=== PATIENT | female | born 1955 | race Caucasian/White ===

== ENCOUNTER 2019-06-23 08:21 | Observation (INO) | payer MEDICARE, BC ==
[2019-06-23] MEDS ORDERED: PROMETHAZINE HCL 6.25 MG in 0.9 % SODIUM CHLORIDE 100ML 100 ML IVPB ONE (08:51)
[2019-06-23 08:59] LABS: ABSOLUTE NEUTROPHIL COUNT 4.94; BASO % 0.3 % (0-6); EOS % 0.5 % (0-6); GRAN % 66.4 % (47-80); HEMATOCRIT 41.4 % (35.0-47.0); HEMOGLOBIN 13.5 gm/dl (11.6-16.0); LYMPH % 21.5 % (16-45); MEAN CORPUSCULAR HEMOGLOBIN 32.6 pg (27-33); MEAN CORPUSCULAR HGB CONC 32.6 g/dl (32-36); MEAN PLATELET VOLUME 8.8 fl (7.4-10.4); MONO % 11.3 % (0-9); PLATELET COUNT 286 K/uL (130-400); RED BLOOD COUNT 4.14 M/uL (3.80-5.40); RED CELL DISTRIBUTION WIDTH 13.3 % (11.5-14.5); WHITE BLOOD COUNT W/O DIFF 7.4 K/uL (4.2-12.2)
[2019-06-23 09:08] LABS: BLOOD UREA NITROGEN 13 mg/dL (8-23); CREATININE 0.8 mg/dL (0.5-0.9); EST GLOMERULAR FILTRATION RATE > 60 mL/min
[2019-06-23 09:09] LABS: TOTAL PROTEIN 7.7 g/dL (6.6-8.7)
[2019-06-23 09:11] LABS: GLUCOSE,RANDOM 110 mg/dL (74-109)
--- NOTE | 2019-06-23 09:12 | Emergency Department Record ---
History of Present Illness - General Chief Complaint: Dizziness Stated Complaint: DIZZINESS Time Seen by Provider: 06/23/19 08:37 Source: Patient, EMS Mode of Arrival: EMS Limitations: No limitations - History of Present Illness Initial Comments: pt woke up in the night with the room spinning. she thinks that she passed out because she found herself on the floor and has a sore spot on her head. her vertigo is improving. MD Complaint: Dizziness -: Unknown Timing: Gradual onset Description: "Room spinning" History of Same: No History of Trauma: No Improves With: Nothing Worsens With: Nothing Associated Symptoms: Denies other symptoms - [place] Coma Scale Eye Response: (4) Open spontaneously Motor Response: (6) Obeys commands Verbal Response: (5) Oriented Leilani Total: 15 - Symptoms of Stroke Symptoms of stroke: Vertigo - Related Data Home Medications Medication Instructions Recorded Confirmed Last Taken Acetaminophen [Tylenol Extra 500 mg PO ASDIR PRN 06/23/19 06/23/19 Unknown Strength] Baricitinib [Olumiant] 2 mg PO DAILY 06/23/19 06/23/19 Unknown Buspirone HCl [Buspar] 7.5 mg PO BID 06/23/19 06/23/19 Unknown Cyclobenzaprine HCl [Flexeril] 5 mg PO QHS 06/23/19 06/23/19 Unknown Diclofenac Sodium [Voltaren] 100 gm TP ASDIR PRN 06/23/19 06/23/19 Unknown Diphenhydramine HCl [Benadryl] 50 mg PO QHS 06/23/19 06/23/19 Unknown Folic Acid 1 mg PO BID 06/23/19 06/23/19 Unknown Levothyroxine Sodium 150 mcg PO DAILY 06/23/19 06/23/19 Unknown Lidocaine [Lidoderm] 1 each TP DAILY PRN 06/23/19 06/23/19 Unknown Losartan/Hydrochlorothiazide 1 each PO DAILY 06/23/19 06/23/19 Unknown [Losartan-Hctz 100-25 mg Tab] Methotrexate Sodium [Trexall] 12.5 mg PO WEEKLY 06/23/19 06/23/19 Unknown Montelukast Sodium 10 mg PO DAILY 06/23/19 06/23/19 Unknown Omeprazole [Prilosec] 20 mg PO BID 06/23/19 06/23/19 Unknown Allergies Allergy/AdvReac Type Severity Reaction Status Date / Time NSAIDS (Non-Steroidal Allergy Intermediate bleeding Verified 01/30/15 14:04 Anti-Inflamma ulcers Sulfa (Sulfonamide Allergy Intermediate HIVES Verified 01/30/15 14:04 Antibiotics) codeine Allergy Mild HEADACHE Verified 01/30/15 14:04 Penicillins Allergy Unknown unknown Verified 01/30/15 14:04 Travel Screening - Travel/Exposure Within Last 30 Days Have you traveled within the last 30 days?: No Review of Systems Reviewed: No additional complaints except as noted below Constitutional: Reports: As per HPI. Denies: Chills, Fever, Malaise, Night sweats, Weakness, Weight change Eyes: Reports: As per HPI. Denies: Eye discharge, Eye pain, Photophobia, Vision change ENT: Reports: As per HPI. Denies: Congestion, Dental pain, Ear pain, Epistaxis, Hearing loss, Throat pain Respiratory: Reports: As per HPI. Denies: Cough, Dyspnea, Hemoptysis, Stridor, Wheezes Cardiovascular: Reports: As per HPI. Denies: Arrhythmia, Chest pain, Dyspnea on exertion, Edema, Murmurs, Orthopnea, Palpitations, Paroxysmal nocturnal dyspne a, Rheumatic Fever, Syncope Endocrine: Reports: As per HPI. Denies: Fatigue, Heat or cold intolerance, Polydipsia, Polyuria Gastrointestinal: Reports: As per HPI. Denies: Abdominal pain, Constipation, Diarrhea, Hematemesis, Hematochezia, Melena, Nausea, Vomiting Genitourinary: Reports: As per HPI. Denies: Abnormal menses, Discharge, Dyspareunia, Dysuria, Frequency, Hematuria, Incontinence, Retention, Urgency Musculoskeletal: Reports: As per HPI. Denies: Arthralgia, Back pain, Gout, Joint swelling, Myalgia, Neck pain Skin: Reports: As per HPI. Denies: Bruising, Change in color, Change in hair/nails, Lesions, Pruritus, Rash Neurological: Reports: As per HPI, Vertigo. Denies: Abnormal gait, Confusion, Headache, Numbness, Paresthesias, Seizure, Tingling, Tremors, Weakness Psychiatric: Reports: As per HPI. Denies: Anxiety, Auditory hallucinations, Depression, Homicidal thoughts, Suicidal thoughts, Visual hallucinations Hematological/Lymphatic: Reports: As per HPI. Denies: Anemia, Blood Clots, Easy bleeding, Easy bruising, Swollen glands Past Medical History - SOCIAL HISTORY Smoking Status: Former smoker - RESPIRATORY Hx Respiratory Disorders: No - CARDIOVASCULAR Hx Cardio Disorders: Yes Hx Hypertension: Yes Comment:: high cholesterol - NEURO Hx Neuro Disorders: No - GI Hx GI Disorders: Yes Hx Reflux: Yes Hx Ulcer: Yes - Hx Genitourinary Disorders: No - ENDOCRINE Hx Endocrine Disorders: Yes Hx Thyroid Disease: Yes (hypo) - MUSCULOSKELETAL Hx Musculoskeletal Disorders: Yes Hx Arthritis: Yes (RA) - PSYCH Hx Psych Problems: No - HEMATOLOGY/ONCOLOGY Hx Hematology/Oncology Disorders: No Family Medical History Any Significant Family History?: No Physical Exam - General General Appearance: Alert, Oriented x3, Cooperative, Mild distress - Head Head exam: Normal inspection - Eye Eye exam: Normal appearance, PERRL, EOMI Pupils: Normal accommodation - ENT ENT exam: Normal exam, Mucous membranes moist, Normal external ear exam, Normal orophraynx, TM's normal bilaterally Ear exam: Normal external inspection. negative: External canal tenderness Nasal Exam: Normal inspection. negative: Discharge, Sinus tenderness Mouth exam: Normal external inspection, Tongue normal Teeth exam: Normal inspection. negative: Dental caries Throat exam: Normal inspection. negative: Tonsillar erythema, Tonsillar exudate - Neck Neck exam: Normal inspection, Full ROM. negative: Tenderness - Respiratory Respiratory exam: Normal lung sounds bilaterally. negative: Respiratory distress - Cardiovascular Cardiovascular Exam: Regular rate, Normal rhythm, Normal heart sounds - GI/Abdominal GI/Abdominal exam: Soft, Normal bowel sounds. negative: Tenderness - Rectal Rectal exam: Deferred - exam: Deferred - Extremities Extremities exam: Normal inspection, Full ROM, Normal capillary refill. negative: Tenderness - Back Back exam: Reports: Normal inspection, Full ROM. Denies: Muscle spasm, Rash noted, Tenderness - Neurological Neurological exam: Alert, CN II-XII intact, Normal gait, Oriented X3 - Psychiatric Psychiatric exam: Normal affect, Normal mood - Skin Skin exam: Dry, Intact, Normal color, Warm Course Vital Signs 06/23/19 08:25 Temperature 97.8 F Pulse Rate 64 Respiratory 16 Rate Blood Pressure 125/70 Pulse Ox 99 - Reevaluation(s) Reevaluation #1: 06/23/19 10:18 pts vertigo has improved Reevaluation #2: 06/23/19 10:40 pt has a headache Medical Decision Making - Lab Data Result diagrams: 06/23/19 08:34 06/23/19 08:34 Lab Results 06/23/19 Range/Units 08:34 WBC 7.4 (4.2-12.2) K/uL RBC 4.14 (3.80-5.40) M/uL Hgb 13.5 (11.6-16.0) gm/dl Hct 41.4 (35.0-47.0) % MCV 100.0 H (81-97) fl MCH 32.6 (27-33) pg MCHC 32.6 (32-36) g/dl RDW 13.3 (11.5-14.5) % Plt Count 286 (130-400) K/uL MPV 8.8 (7.4-10.4) fl Gran % 66.4 (47-80) % Lymphocytes % 21.5 (16-45) % Monocytes % 11.3 H (0-9) % Eosinophils % 0.5 (0-6) % Basophils % 0.3 (0-6) % Absolute Neutrophils 4.94 Disposition Disposition: Admit Clinical Impression: Syncope Qualifiers: Syncope type: unspecified Qualified Code(s): R55 - Syncope and collapse Disposition: Still a Patient at [facility] Decision to Admit: Admit from ER Decision to Admit Date: 06/23/19 Decision to Admit Time: 10:41 Forms: Patient Portal Access Quality - Quality Measures Quality Measures: N/A - Blood Pressure Screening Does Patient Have Any of the Following: Active Dx of HTN Blood Pressure Classification: Pre-Hypertensive BP Reading Systolic Measurement: 125 Diastolic Measurement: 70 Screening for High Blood Pressure: Patient Exclusion, Hx of HTN [[id number]]
[2019-06-23 09:13] LABS: ALB/GLOB RATIO 1.3 (1.1-1.8); ALBUMIN 4.4 g/dL (4.0-5.0); ALT/SGPT 22 U/L (<33); AST/SGOT 18 U/L (10.0-35.0)
[2019-06-23 09:14] LABS: ALKALINE PHOSPHATASE 89 U/L (35-104)
--- NOTE | 2019-06-23 09:46 | CT SCAN REPORT ---
EXAMINATION: CT Head without IV Contrast EXAM DATE: 06/23/2019 9:23 AM TECHNIQUE: Standard protocol CT images of the head were obtained without intravenous contrast. Payan l and sagittal reconstructed images were created. INDICATION: Syncope COMPARISON: No relevant comparison studies HAND DOMINANCE: Unknown. ENCOUNTER: Not applicable FINDINGS: 1. No intracranial mass effect, shift of midline structures, intra-axial or extra-axial hemorrhage, o r other extra-axial fluid collections. 2. Brain volume and ventricular size are appropriate for patient's stated age. No ventricular outflow obstruction. 3. Theodore-white matter differentiation is preserved. No sulcal effacement. No suspicious areas of alter ed attenuation. 4. Midline structures and craniocervical junction are unremarkable. 5. No significant intracranial atherosclerotic calcifications. 6. No depressed or widely calvarial fractures. No aggressive calvarial lesions. 7. Visualized paranasal sinuses and temporal bone structures are well aerated. Bilateral lens replace ment. IMPRESSION: No acute intracranial abnormality to the limits of noncontrast CT technique. Dictated by: Liset Mcintosh MD on 06/23/2019 9:43 AM. .
--- NOTE | 2019-06-23 10:05 | CT SCAN REPORT ---
EXAMINATION: CT Cervical Spine without IV Contrast EXAM DATE: 06/23/2019 9:23 AM TECHNIQUE: Standard protocol cervical spine CT imaging was performed without intravenous contrast. Co ro and sagittal images were reconstructed. INDICATION: Vertigo, fall. COMPARISON: No relevant comparison studies ENCOUNTER: Not applicable FINDINGS: The spine is seen from craniocervical junction to the T1-T2 level. No malalignment at the craniocervi brit junction. Straightening of the cervical lordosis. Cervical vertebral body heights and facet align ment are preserved. No convincing cervical spine fracture or traumatic malalignment. Moderate disc degenerative changes at C5-C6 and to a lesser extent C4-C5 without significant spinal c anal stenosis but moderate bilateral foraminal narrowing. Visualized lung apices are well aerated. IMPRESSION: Straightening of the cervical lordosis which may relate to patient positioning in the scanner versus muscle spasm. No cervical spine fracture. Dictated by: Liset Mcintosh MD on 06/23/2019 10:02 AM. .
[2019-06-23] MEDS ORDERED: ONDANSETRON HCL IV 4 MG/2 ML VIAL IVP ONE (10:19)
[2019-06-23] MEDS ORDERED: HYDROMORPHONE HCL 2 MG/ML VIAL IVP ONE (10:19)
[2019-06-23] MEDS ORDERED: HYDROMORPHONE HCL 2 MG/ML VIAL IVP PRN (11:10)
[2019-06-23] MEDS ORDERED: DICLOFENAC SODIUM 100 GM TP PRN (11:10)
[2019-06-23] MEDS ORDERED: MECLIZINE 25 MG TABLET PO PRN (11:10)
[2019-06-23 12:59] LABS: URINE APPEARANCE CLEAR; URINE BILIRUBIN NEGATIVE (NEGATIVE); URINE BLOOD NEGATIVE (NEGATIVE); URINE COLOR YELLOW; URINE GLUCOSE (UA) NEGATIVE (NEGATIVE); URINE KETONE NEGATIVE (NEGATIVE); URINE LEUKOCYTE ESTERASE NEGATIVE (NEGATIVE); URINE NITRITE NEGATIVE (NEGATIVE); URINE PROTEIN NEGATIVE (NEGATIVE); URINE UROBILINOGEN 0.2 E.U./dL (0.20 - 1.00)
[2019-06-23] MEDS: BUSPIRONE 5 MG TABLET PO SCH ×2 (14:25→21:33)
[2019-06-23] MEDS: ACETAMINOPHEN 500 MG TABLET PO PRN (14:28)
--- NOTE | 2019-06-23 14:32 | History & Physical ---
History of Present Illness - Date of Service Date of Service for History & Physical: 06/23/19 - History of Present Illness Admitting Diagnosis: syncope, vertigo History of Present Illness: 63 y/o female brought to ED via EMS for vertigo and syncope. Episode was unwitnessed. She reports has had a head cold for the past 3 days and has been taking Nyquil at night for congestion. She got up at 4am this am, took Nyquil, began to feel dizzy while she was standing in the kitchen and next thing she remembers is laying on the floor. She is unaware of how long the LOC lasted. After coming to she had a headache and felt very foggy so went back to bed. Upon arising a couple hours later she continued to be dizzy, at that time here called EMS. No further reported syncopal episodes. She admits to having had vertigo about 10 years ago, unknown cause, that spontaneously resolved and has had no further problems. Past medical history includes former smoker, HTN, high cholesterol, GERD, hypothyroidism, RA. While in ED VSS, CBC and CMP unremarkable. U/A negative. Head and cervical spine CT negative for fracture or acute process. Admitted for observation 06/23/19- Resting in bed comfortably, does report the top of her head hurts where she thinks she it on something when she passed out, otherwise has no other complaints. She states today her sinus congestion is feeling much better. Travel Screening - Travel/Exposure Within Last 30 Days Have you traveled within the last 30 days?: No - Travel/Exposure Within Last Year Have you traveled outside the [place] in the last year?: No - Additonal Travel Details Have you been exposed to anyone with a communicable illness?: No - Travel Symptoms Symptom Screening: None Review of Systems Constitutional: Reports: As per HPI. Denies: Chills, Fever, Malaise, Night swea ts, Weakness, Weight change Eyes: Reports: As per HPI. Denies: Eye discharge, Eye pain, Photophobia, Vision change ENT: Reports: As per HPI. Denies: Congestion, Dental pain, Ear pain, Epistaxis, Hearing loss, Throat pain Respiratory: Reports: As per HPI. Denies: Cough, Dyspnea, Hemoptysis, Stridor, Wheezes Cardiovascular: Reports: As per HPI. Denies: Arrhythmia, Chest pain, Dyspnea on exertion, Edema, Murmurs, Orthopnea, Palpitations, Paroxysmal nocturnal dyspnea, Rheumatic Fever, Syncope Endocrine: Reports: As per HPI. Denies: Fatigue, Heat or cold intolerance, P olydipsia, Polyuria Gastrointestinal: Reports: As per HPI. Denies: Abdominal pain, Constipation, Diarrhea, Hematemesis, Hematochezia, Melena, Nausea, Vomiting Genitourinary: Reports: As per HPI. Denies: Abnormal menses, Discharge, Dyspareunia, Dysuria, Frequency, Hematuria, Incontinence, Retention, Urgency Musculoskeletal: Reports: As per HPI. Denies: Arthralgia, Back pain, Gout, Joint swelling, Myalgia, Neck pain Skin: Reports: As per HPI. Denies: Bruising, Change in color, Change in hair/n ails, Lesions, Pruritus, Rash Neurological: Reports: As per HPI, Vertigo. Denies: Abnormal gait, Confusion, Headache, Numbness, Paresthesias, Seizure, Tingling, Tremors, Weakness Psychiatric: Reports: As per HPI. Denies: Anxiety, Auditory hallucinations, Depression, Homicidal thoughts, Suicidal thoughts, Visual hallucinations Hematological/Lymphatic: Reports: As per HPI. Denies: Anemia, Blood Clots, Easy bleeding, Easy bruising, Swollen glands Past Medical History - SOCIAL HISTORY Smoking Status: Former smoker Alcohol Use: Rare Drug Use: None - RESPIRATORY Hx Respiratory Disorders: Yes Hx Bronchitis: Yes (takes singulair) Hx Pneumonia: Yes (as a child) - CARDIOVASCULAR Hx Cardio Disorders: Yes Hx Hypertension: Yes (med controlled) Comment:: high cholesterol - NEURO Hx Neuro Disorders: Yes Hx Dizziness: Yes (current and 10 years ago) Hx Headaches: Yes - GI Hx GI Disorders: Yes Hx Reflux: Yes Hx Ulcer: Yes (hx bleeding ulcer) Hx Wt Loss/Wt Gain: Yes (hx gastric sleeve) - Hx Genitourinary Disorders: No - ENDOCRINE Hx Endocrine Disorders: Yes Hx Diabetes: No Hx Thyroid Disease: Yes (hypo) - MUSCULOSKELETAL Hx Musculoskeletal Disorders: Yes Hx Arthritis: Yes (RA) - PSYCH Hx Psych Problems: Yes Hx Anxiety: Yes - HEMATOLOGY/ONCOLOGY Hx Hematology/Oncology Disorders: No Hx Blood Transfusions: Yes Family Medical History Any Significant Family History?: No H&P Meds/Allergies - Allergies Allergies: Allergies Allergy/AdvReac Type Severity Reaction Status Date / Time NSAIDS (Non-Steroidal Allergy Intermediate bleeding Verified 01/30/15 14:04 Anti-Inflamma ulcers Sulfa (Sulfonamide Allergy Intermediate HIVES Verified 01/30/15 14:04 Antibiotics) codeine Allergy Mild HEADACHE Verified 01/30/15 14:04 Penicillins Allergy Unknown unknown Verified 01/30/15 14:04 - Home Medications Home Medications Medication Instructions Recorded Confirmed Last Taken Acetaminophen [Tylenol Extra 500 mg PO ASDIR PRN 06/23/19 06/23/19 Unknown Strength] Baricitinib [Olumiant] 2 mg PO DAILY 06/23/19 06/23/19 Unknown Buspirone HCl [Buspar] 7.5 mg PO BID 06/23/19 06/23/19 Unknown Cyclobenzaprine HCl [Flexeril] 5 mg PO QHS 06/23/19 06/23/19 Unknown Diclofenac Sodium [Voltaren] 100 gm TP ASDIR PRN 06/23/19 06/23/19 Unknown Diphenhydramine HCl [Benadryl] 50 mg PO QHS 06/23/19 06/23/19 Unknown Folic Acid 1 mg PO BID 06/23/19 06/23/19 Unknown Levothyroxine Sodium 150 mcg PO DAILY 06/23/19 06/23/19 Unknown Lidocaine [Lidoderm] 1 each TP DAILY PRN 06/23/19 06/23/19 Unknown Losartan/Hydrochlorothiazide 1 each PO DAILY 06/23/19 06/23/19 Unknown [Losartan-Hctz 100-25 mg Tab] Methotrexate Sodium [Trexall] 12.5 mg PO WEEKLY 06/23/19 06/23/19 Unknown Montelukast Sodium 10 mg PO DAILY 06/23/19 06/23/19 Unknown Omeprazole [Prilosec] 20 mg PO BID 06/23/19 06/23/19 Unknown - Active Medications Active Medications: Current Medications Acetaminophen (Tylenol 500mg Tab) 1,000 mg PO Q6H PRN PRN Reason: PAIN - MILD(1-4)/FEVER Buspirone HCl (Buspar) 7.5 mg PO BID NERY Diphenhydramine HCl (Benadryl Capsule) 50 mg PO QHS NERY Hydrochlorothiazide (Hctz 25mg) 25 mg PO DAILY NERY Hydromorphone HCl (Dilaudid) 0.5 mg IVP Q4H PRN PRN Reason: PAIN - MILD TO MODERATE (1-7) Levothyroxine Sodium (Synthroid) 150 mcg PO DAILY [facility] Losartan Potassium (Losartan Potassium) 100 mg PO DAILY NERY Meclizine HCl (Antivert) 25 mg PO Q8H PRN PRN Reason: DIZZINESS Montelukast Sodium (Singulair) 10 mg PO DAILY [facility] Non-Formulary Medication (Baricitinib [Olumiant]) 2 mg PO DAILY NERY Non-Formulary Medication (Diclofenac Sodium [Voltaren]) 100 gm TP ASDIR PRN PRN Reason: PAIN - MILD TO MODERATE (1-7) Non-Formulary Medication (Methotrexate Sodium [Trexall]) 12.5 mg PO WEEKLY NERY Pantoprazole Sodium (Protonix) 40 mg PO BID [facility] Physical Exam - Vital Signs Vital Signs: Vital Signs - Last 24 Hrs Temp Pulse Pulse Resp BP BP BP 06/23/19 12:00 99.5 F 62 14 105/61 06/23/19 10:46 64 18 109/59 06/23/19 08:25 97.8 F 64 16 125/70 Pulse Ox 06/23/19 12:00 94 L 06/23/19 10:46 98 06/23/19 08:25 99 - General General Appearance: Alert, Oriented x3, Cooperative Limitations: No limitations - Head Head exam: Atraumatic, Normocephalic, Normal inspection (she complains of tenderness to frontal region of skull, no abnormality noted) - Eye Eye exam: Normal appearance, PERRL, EOMI Pupils: Normal accommodation - ENT ENT exam: Normal exam, Mucous membranes moist, Normal external ear exam, Normal orophraynx, TM's normal bilaterally Ear exam: Normal external inspection. negative: External canal tenderness Nasal Exam: Normal inspection. negative: Discharge, Sinus tenderness Mouth exam: Normal external inspection, Tongue normal Teeth exam: Normal inspection. negative: Dental caries Throat exam: Normal inspection. negative: Tonsillar erythema, Tonsillar exudate - Neck Neck exam: Normal inspection, Full ROM. negative: Tenderness - Respiratory Respiratory exam: Normal lung sounds bilaterally. negative: Respiratory distress - Cardiovascular Cardiovascular Exam: Regular rate, Normal rhythm, Normal heart sounds - GI/Abdominal GI/Abdominal exam: Soft, Normal bowel sounds. negative: Tenderness - Rectal Rectal exam: Deferred - exam: Deferred - Extremities Extremities exam: Normal inspection, Full ROM, Normal capillary refill. negative: Tenderness - Back Back exam: Reports: Normal inspection, Full ROM. Denies: Muscle spasm, Rash noted, Tenderness - Neurological Neurological exam: Alert, CN II-XII intact, Normal gait, Oriented X3 - Psychiatric Psychiatric exam: Normal affect, Normal mood - Skin Skin exam: Dry, Intact, Normal color, Warm Results - Labs Result Diagrams: 06/23/19 08:34 06/23/19 08:34 Labs Last 24 Hours: Laboratory Results - last 24 hr 06/23/19 06/23/19 06/23/19 08:34 08:34 12:50 WBC 7.4 RBC 4.14 Hgb 13.5 Hct 41.4 MCV 100.0 H MCH 32.6 MCHC 32.6 RDW 13.3 Plt Count 286 MPV 8.8 Gran % 66.4 Lymphocytes % 21.5 Monocytes % 11.3 H Eosinophils % 0.5 Basophils % 0.3 Absolute Neutrophils 4.94 Sodium 137 Potassium 3.7 Chloride 96 L Carbon Dioxide 27.0 Anion Gap 14.0 BUN 13 Creatinine 0.8 Estimated GFR > 60 Random Glucose 110 H Calcium 9.7 Total Bilirubin 0.30 AST 18 ALT 22 Alkaline Phosphatase 89 Total Protein 7.7 Albumin 4.4 Globulin 3.3 Albumin/Globulin Ratio 1.3 Urine Color Yellow Urine Appearance Clear Urine pH 6.0 Ur Specific [place] <= 1.005 Urine Protein Negative Urine Glucose (UA) Negative Urine Ketones Negative Urine Blood Negative Urine Nitrite Negative Urine Bilirubin Negative Urine Urobilinogen 0.2 Ur Leukocyte Esterase Negative - Imaging and Cardiology CT scan - head Status: Report reviewed VTE H&P Assessment - Risk for VTE Risk for VTE: Yes Risk Level: Low Risk Assessment Date: 06/23/19 Risk Assessment Time: 18:39 VTE Orders Placed or Will Be Placed: Yes Plan - Detailed Diagnosis and Plan (1) Syncope Current Visit: Yes Status: Acute Qualifiers: Syncope type: unspecified Qualified Code(s): R55 - Syncope and collapse Base Code: R55 - SYNCOPE AND COLLAPSE Comment: 06/23/19 - ED work up unremarkable - She takes multiple sedating medications at bedtime and likely had adverse reaction with the addition to Nyquil. She takes Benadryl at HS in addition to the antihistamine found in Nyquil - EKG - Tele - Orthostatic BP - TSH in am - Advised no OTC medications containing antihistamines (2) Rheumatoid arthritis Current Visit: Yes Status: Acute Base Code: M06.9 - RHEUMATOID ARTHRITIS, UNSPECIFIED Comment: 06/23/19 - Olumiant and methotrexate per home dosing (3) Anxiety Current Visit: Yes Status: Acute Base Code: F41.9 - ANXIETY DISORDER, UNSPECIFIED Comment: 06/23/19 - Buspar 7.5mg BID (4) HTN (hypertension) Current Visit: Yes Status: Acute Base Code: I10 - ESSENTIAL (PRIMARY) HYPERTENSION Comment: 06/23/19 - HCTZ 25mg QD, Losartan 100mg QD (5) Hypothyroidism Current Visit: Yes Status: Acute Base Code: E03.9 - HYPOTHYROIDISM, UNSPECIFIED Comment: 06/23/19 - Levothyroxine 150mcg daily - TSH in am (6) DVT prophylaxis Current Visit: Yes Status: Acute Base Code: Z29.9 - ENCOUNTER FOR PROPHYLACTIC MEASURES, UNSPECIFIED Comment: 06/23/19 - Syncopal risk - Will hold anticoagulation therapy for now - Nursing to encourage ambulation - SCD in bed (7) Full code status Current Visit: Yes Status: Acute Base Code: Z78.9 - OTHER SPECIFIED HEALTH STATUS Comment: 06/23/19
[2019-06-23] MEDS ORDERED: DIPHENHYDRAMINE HCL 25 MG CAPSULE PO SCH (22:00)
[2019-06-23] MEDS ORDERED: CYCLOBENZAPRINE 10MG TABLET PO SCH (22:00)
[2019-06-24] MEDS: ACETAMINOPHEN 500 MG TABLET PO PRN (02:56)
[2019-06-24] MEDS: PANTOPRAZOLE SODIUM 40 MG TABLET PO SCH ×2 (06:34→09:54)
[2019-06-24] MEDS: BUSPIRONE 5 MG TABLET PO SCH (09:51)
[2019-06-24] MEDS ORDERED: MONTELUKAST SODIUM 10MG TABLET PO SCH ×2 (10:00→22:00)
[2019-06-24] MEDS ORDERED: LEVOTHYROXINE SODIUM 150 MCG TABLET PO SCH (10:00)
[2019-06-24] MEDS ORDERED: BARICITINIB 2 MG PO SCH (10:00)
[2019-06-24] MEDS ORDERED: HYDROCHLOROTHIAZIDE 25 MG TABLET PO SCH (10:00)
[2019-06-24] MEDS ORDERED: LOSARTAN POTASSIUM 100 MG TABLET PO SCH (10:00)
--- NOTE | 2019-06-24 12:16 | Discharge Summary ---
Providers Discharge Summary Date: 06/24/19 Date of admission: 06/23/19 11:05 Attending physician: ELIO HARRIS Primary care physician: YOLIE SCHULTZ M.D. Physical Exam - Vital Signs Vital Signs: Vital Signs - Last 24 Hrs Temp Pulse Resp BP BP Pulse Ox 06/24/19 07:33 97.5 F L 59 L 16 121/68 98 06/24/19 04:00 97.7 F 55 L 16 134/91 100 06/24/19 03:01 98.6 F 59 L 16 118/55 98 06/23/19 20:06 58 L 06/23/19 20:00 97.4 F L 52 L 18 124/68 98 06/23/19 16:00 98.6 F 60 114/67 97 06/23/19 15:17 62 14 - General General Appearance: Alert, Oriented x3, Cooperative Limitations: No limitations - Head Head exam: Atraumatic, Normocephalic, Normal inspection (she complains of tenderness to frontal region of skull, no abnormality noted) - Eye Eye exam: Normal appearance, PERRL, EOMI Pupils: Normal accommodation - ENT ENT exam: Normal exam, Mucous membranes moist, Normal external ear exam, Normal orophraynx, TM's normal bilaterally Ear exam: Normal external inspection. negative: External canal tenderness Nasal Exam: Normal inspection. negative: Discharge, Sinus tenderness Mouth exam: Normal external inspection, Tongue normal Teeth exam: Normal inspection. negative: Dental caries Throat exam: Normal inspection. negative: Tonsillar erythema, Tonsillar exudate - Neck Neck exam: Normal inspection, Full ROM. negative: Tenderness - Respiratory Respiratory exam: Normal lung sounds bilaterally. negative: Respiratory distress - Cardiovascular Cardiovascular Exam: Regular rate, Normal rhythm, Normal heart sounds - GI/Abdominal GI/Abdominal exam: Soft, Normal bowel sounds. negative: Tenderness - Rectal Rectal exam: Deferred - exam: Deferred - Extremities Extremities exam: Normal inspection, Full ROM, Normal capillary refill. negative: Tenderness - Back Back exam: Reports: Normal inspection, Full ROM. Denies: Muscle spasm, Rash noted, Tenderness - Neurological Neurological exam: Alert, CN II-XII intact, Normal gait, Oriented X3 - Psychiatric Psychiatric exam: Normal affect, Normal mood - Skin Skin exam: Dry, Intact, Normal color, Warm Hospitalization - Hospitalization Admission Diagnosis: syncope, vertigo - Problem List/Discharge Diagnosis (1) Syncope Current Visit: Yes Status: Acute Discharge Diagnosis: Syncope type: unspecified Qualified Code(s): R55 - Syncope and collapse Base Code: R55 - SYNCOPE AND COLLAPSE Comment: 06/24/19 - ED work up unremarkable - She takes multiple sedating medications at bedtime and likely had adverse reaction with the addition to Nyquil. She takes Benadryl at HS in addition to the antihistamine found in Nyquil - EKG NSR - Tele remained NSR - Orthostatic BP normal - TSH 0.03, will decrease Synthroid to 125mcg daily - Advised no OTC medications containing antihistamines - NO further episodes of dizziness or vertigo, stable for discharge home (2) Rheumatoid arthritis Current Visit: Yes Status: Acute Base Code: M06.9 - RHEUMATOID ARTHRITIS, UNSPECIFIED Comment: 06/24/19 - Olumiant and methotrexate per home dosing (3) Anxiety Current Visit: Yes Status: Acute Base Code: F41.9 - ANXIETY DISORDER, UNSPECIFIED Comment: 06/24/19 - Buspar 7.5mg BID (4) HTN (hypertension) Current Visit: Yes Status: Acute Base Code: I10 - ESSENTIAL (PRIMARY) HYPERTENSION Comment: 06/24/19 - HCTZ 25mg QD, Losartan 100mg QD. Held 06/23 for initital presentation of lower than baseline BP and syncopal episode, restarted 06/24/19 (5) Hypothyroidism Current Visit: Yes Status: Acute Base Code: E03.9 - HYPOTHYROIDISM, UNSPECIFIED Comment: 06/24/19 - Levothyroxine 150mcg daily - TSH 0.03, decrease Synthroid to 125mcg (6) DVT prophylaxis Current Visit: Yes Status: Acute Base Code: Z29.9 - ENCOUNTER FOR PROPHYLACTIC MEASURES, UNSPECIFIED Comment: 06/24/19 - Syncopal risk - Will hold anticoagulation therapy for now - Nursing to encourage ambulation - SCD in bed (7) Full code status Current Visit: Yes Status: Acute Base Code: Z78.9 - OTHER SPECIFIED HEALTH STATUS Comment: 06/24/19 - Hospitalization Course Disposition: Home, Self-Care Hospital Course: 63 y/o female brought to ED via EMS for vertigo and syncope. Episode was unwitnessed. She reports has had a head cold for the past 3 days and has been taking Nyquil at night for congestion. She got up at 4am this am, took Nyquil, began to feel dizzy while she was standing in the kitchen and next thing she rem embers is laying on the floor. She is unaware of how long the LOC lasted. After coming to she had a headache and felt very foggy so went back to bed. Upon arising a couple hours later she continued to be dizzy, at that time here called EMS. No further reported syncopal episodes. She admits to having had vertigo about 10 years ago, unknown cause, that spontaneously resolved and has had no further problems. Past medical history includes former smoker, HTN, high cholesterol, GERD, hypothyroidism, RA. While in ED VSS, CBC and CMP unremarkable. U/A negative. Head and cervical spine CT negative for fracture or acute process. Admitted for observation 06/23/19- Resting in bed comfortably, does report the top of her head hurts where she thinks she it on something when she passed out, otherwise has no other complaints. She states today her sinus congestion is feeling much better. 06/24/19 1200- Sitting in bed, in no distress. No new nursing concerns overnight. Tele remained NSR. No new episodes of dizziness, syncope, or near syncope. No headache, fogginess, changes in vision. Hospital course unremarkable. Stable to [place] home. Likely cause of syncope was additional antihistamine in nighttime cold medication in addition to her other HS medications including Benadryl. Procedures: Imaging and X-Rays 06/23/19 08:49 HEAD WO CONTRAST [CT] Stat 06/23/19 09:03 CERVICAL SPINE WO CONTRAST [CT] Stat Cardiology Procedures 06/23/19 08:49 Photonics Engineering Technologist NOW EKG NOW 06/23/19 11:10 Photonics Engineering Technologist .Continuous 06/23/19 14:21 EKG NOW Abnormal Labs: Abnormal Lab Results 06/23/19 06/23/19 06/24/19 Range/Units 08:34 08:34 06:23 MCV 100.0 H (81-97) fl Monocytes % 11.3 H (0-9) % Chloride 96 L (98-107) mmol/L Random Glucose 110 H (74-109) mg/dL TSH 0.03 L (0.270-4.20) uIU/mL Condition at Discharge: (1) Good Discharge Medications - Discharge Medications Prescriptions: Levothyroxine Sodium 125 mcg PO DAILY #30 tablet Home Medications: Ambulatory Orders Acetaminophen [Tylenol Extra Strength] 500 mg PO Q4H PRN 06/23/19 [Last Taken Unknown] Baricitinib [Olumiant] 2 mg PO DAILY 06/23/19 [Last Taken Unknown] Buspirone HCl [Buspar] 7.5 mg PO BID 06/23/19 [Last Taken Unknown] Cyclobenzaprine HCl [Flexeril] 5 mg PO QHS 06/23/19 [Last Taken Unknown] Diclofenac Sodium [Voltaren] 100 gm TP ASDIR PRN 06/23/19 [Last Taken Unknown] Diphenhydramine HCl [Benadryl] 50 mg PO QHS 06/23/19 [Last Taken Unknown] Folic Acid 1 mg PO BID 06/23/19 [Last Taken Unknown] Lidocaine [Lidoderm] 1 each TP DAILY PRN 06/23/19 [Last Taken Unknown] Losartan/Hydrochlorothiazide [Losartan-Hctz 100-25 mg Tab] 1 each PO DAILY 06/23/19 [Last Taken Unknown] Methotrexate Sodium [Trexall] 12.5 mg PO WEEKLY 06/23/19 [Last Taken Unknown] Montelukast Sodium 10 mg PO QHS 06/23/19 [Last Taken Unknown] Omeprazole [Prilosec] 20 mg PO BID 06/23/19 [Last Taken Unknown] Cyclobenzaprine HCl [Flexeril] 5 mg PO QHS tablet 06/24/19 [Last Taken Unknown] Levothyroxine Sodium 125 mcg PO DAILY #30 tablet 06/24/19 [Last Taken Unknown] Discharge Plan - Discharge Instructions Activity at Discharge: Increase Activity as Tolerated Diet at Discharge: Regular Diet Additional Instructions: Your Synthroid dose was decreased today, follow up with PCP in 1 month for repeat TSH Do not take OTC nighttime cough and cold medication that has antihistamines in them Quality Measures - Quality Measures Quality Measures: Documentation of Current Medications in Medical Record, Screening for High Blood Pressure and F/U Documented - Current Medications Quality Measure: Measure #130: Documentation of Current Medications Documentation of Current Medications: <Current Medications Documented/Reviewed> [[id number]] - Blood Pressure Screening Quality Measure: Screening for High Blood Pressure and Follow-Up Documented Does Patient Have Any of the Following: Active Dx of HTN Blood Pressure Classification: Pre-Hypertensive BP Reading Systolic Measurement: 125 Diastolic Measurement: 70 Screening for High Blood Pressure: Patient Exclusion, Hx of HTN [[id number]] - Elder Abuse Suspicion Index EASI Reference Information: Ashlie SCOTT, Carrillo Dixon, Toñito Barrera, Daniele Will.Development and validation of a tool to assist physicians identification of elder abuse: The Elder Abuse Suspicion Index (EASI ). Journal of Elder Abuse and Neglect, 2008; 20 (3): 276-300.
[2019-06-26] MEDS ORDERED: METHOTREXATE SODIUM 12.5 MG PO SCH (10:00)
== END 2019-06-24 13:05 | disposition home or self-care (01) ==
LOC: ER 08:21 → MEDSURG 11:05
PROVIDERS: ADMIT Internal Medicine; ATTEND Internal Medicine
DX: R55 Syncope and collapse (principal); R42 Dizziness and giddiness; I10 Essential (primary) hypertension; E78.00 Pure hypercholesterolemia, unspecified; K21.9 Gastro-esophageal reflux disease without esophagitis; E03.9 Hypothyroidism, unspecified; M06.9 Rheumatoid arthritis, unspecified; Z87.891 Personal history of nicotine dependence
CPT/HCPCS: 70450; 72125; 80053; 81003; 84443; 85025; 93005; 93010; 96365; 96374; 96375; 99217; 99220; 99285; J2405; J2550